=== PATIENT | female | born 1985 | race Two or more races ===

== ENCOUNTER 2022-10-11 15:51 | Emergency (ER) | payer SELFPAY ==
[~2022-10-11] VITALS: Ht 172.7 cm; Wt 87.0 kg
[2022-10-11 16:40] VITALS: BP 106/60
[2022-10-11] MEDS ORDERED: ACETAMINOPHEN 325MG TABLET PO ONE (20:00)
[2022-10-11 20:19] LABS: CLARITY URINE CLOUDY (CLEAR); COLOR URINE DARK YELLOW (YELLOW); KETONES URINE TRACE (NEGATIVE); LEUKOCYTE ESTERASE URINE 3+ (NEGATIVE); NITRITE URINE NEGATIVE (NEGATIVE); OCCULT BLOOD URINE NEGATIVE (NEGATIVE); PH URINE 7.5 (4.5-8.0); PROTEIN URINE TRACE (NEGATIVE); SPECIFIC GRAVITY URINE 1.025 (1.005-1.030)
[2022-10-11] MEDS ORDERED: IBUP-2028 MT (20:21)
[2022-10-11] MEDS ORDERED: NITR-87 MT (20:21)
== END 2022-10-11 20:40 | disposition home or self-care (01) ==
LOC: ER 15:51
DX: N39.0 Urinary tract infection, site not specified (principal)
CPT/HCPCS: 81003; 81025; 87077; 87186; 99283